=== PATIENT | male | born 1965 | race Caucasian/White ===

== ENCOUNTER 2019-09-29 12:04 | Emergency (ER) | payer OTHER ==
[~2019-09-29] VITALS: Ht 185.4 cm; Wt 120.2 kg
[2019-09-29] MEDS ORDERED: KETOROLAC 30 MG/ML VIAL. IM STA (12:46)
[2019-09-29] MEDS ORDERED: LIDOCAINE 2% VISCOUS 15 ML SOLUTION. SWSW STA (12:46)
[2019-09-29] MEDS ORDERED: LISINOPRIL 10 MG TABLET PO STA (12:46)
[2019-09-29] MEDS ORDERED: AMOX1TAB61 PO (13:17)
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
[2019-09-29 14:05] VITALS: BP 191/110
== END 2019-09-29 14:16 | disposition home or self-care (01) ==
LOC: ER 12:04
DX: K02.9 Dental caries, unspecified (principal); K04.7 Periapical abscess without sinus; I10 Essential (primary) hypertension; F17.220 Nicotine dependence, chewing tobacco, uncomplicated
CPT/HCPCS: 96372; 99283; J1885

== ENCOUNTER 2020-02-24 15:15 | Emergency (ER) | payer OTHER ==
[~2020-02-24] VITALS: Ht 182.9 cm; Wt 120.4 kg
[~2020-02-24 15:15] MED LIST: AMOX1TAB61 PO
[2020-02-24 15:26] VITALS: BP 164/112
[2020-02-24] MEDS ORDERED: HYDR-3164 PO (15:46)
[2020-02-24] MEDS ORDERED: PENI500T PO (15:47)
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
== END 2020-02-24 16:11 | disposition home or self-care (01) ==
LOC: ER 15:15
DX: K02.9 Dental caries, unspecified (principal); K08.89 Other specified disorders of teeth and supporting structures; I10 Essential (primary) hypertension
CPT/HCPCS: 99283